=== PATIENT | female | born 1950 | race Caucasian/White ===

== ENCOUNTER 2019-11-10 04:12 | Emergency (ER) | payer MEDICARE, OTHER ==
[~2019-11-10] VITALS: Ht 167.6 cm; Wt 109.5 kg
[~2019-11-10 04:12] MED LIST: BACTRIM DS TAB1 EACH PO; BUPROPION XL150 MG PO; CIPROFLOXACIN500 M1 PO; FLEXERIL PO; NORCO 5-325 TA1 EACH PO; SYNTHROID100 MCG; SYNTHROID125 MCG PO
[2019-11-10] MEDS ORDERED: LEVO-T100 MCG PO (04:22)
[2019-11-10 04:32] LABS: ABSOLUTE EOSINOPHILS 0.2 thou/uL (0.0-0.7); ABSOLUTE LYMPHOCYTES 2.7 thou/uL (0.8-5.3); ABSOLUTE MONOCYTES 0.8 thou/uL (0.0-1.2); ABSOLUTE NEUTROPHILS 3.3 thou/uL (1.6-8.1); BASOPHILS 0.5 %; EOSINOPHILS 2.6 %; HEMATOCRIT 43.9 % (37.0-47.0); HEMOGLOBIN 15.3 gm/dL (12.0-15.0); LYMPHOCYTES 38.6 %; MCH 31.9 pg (26.0-34.0); MCHC 34.8 g/dL (28.0-37.0); MCV 91.4 fL (80.0-100.0); MONOCYTES 11.1 %; MPV 10.2 fl. (7.2-11.1); NUCLEATED RBCS 0 /100WBC; PLATELET COUNT* 215 thou/uL (150-400); POLYS 47.2 %; RDW-CV 13.9 % (10.5-14.5)
[2019-11-10 04:46] LABS: PROTIME 10.3 Seconds (9.20-11.50)
[2019-11-10 05:28] LABS: URINE BILIRUBIN NEGATIVE (Negative); URINE BLOOD NEGATIVE (Negative); URINE CLARITY CLEAR; URINE COLOR YELLOW; URINE GLUCOSE-RANDOM NEGATIVE (Negative); URINE KETONES NEGATIVE (Negative); URINE LEUKOCYTES-REFLEX TRACE (Negative); URINE NITRITE-REFLEX NEGATIVE (Negative); URINE PROTEIN NEGATIVE (Negative); URINE SPECIFIC GRAVITY <= 1.005 (1.005-1.030); URINE UROBILINOGEN 0.2 E.U./dl (0.2-1.0)
[2019-11-10 05:29] LABS: CALCIUM 8.8 mg/dL (8.5-10.1); CREATININE 0.8 mg/dL (0.6-1.3); POTASSIUM 3.3 mmol/L (3.5-5.1)
[2019-11-10 05:40] LABS: BACTERIA-REFLEX 1-9 Few /HPF (None Seen); CASTS None Seen /LPF (None Seen); CRYSTALS None Seen /LPF (None Seen); MUCUS 0-3 Light strn/LPF (None Seen); SQUAMOUS 0-3 Few /LPF (0-3); URINE RBC 0-2 Rare /HPF (0-2); URINE WBC-REFLEX 0-5 Rare /HPF (0-5)
[2019-11-10 05:43] LABS: ALBUMIN 4.1 g/dL (3.4-5.0); TOTAL BILIRUBIN 0.4 mg/dL (<0.1-1.0); TOTAL PROTEIN 7.4 g/dL (6.4-8.2)
[2019-11-10 06:06] VITALS: BP 160/72
--- NOTE | 2019-11-10 11:11 | EKG ---
[place] [address] ELECTROCARDIOGRAM REPORT Name: JAKE SERRA Room: [facility]#: [id number] Admission: 11/10/19 Attend Phys: Discharge: 11/10/19 Date of : 48 Report #: [id number] THIS REPORT FOR: //name// [facility] ED Test Date: 2019-11-10 Test Time: 04:17:38 Pat Name: JAKE SERRA Department: Room: Gender: F Predictive Maintenance Specialist: : [id number] Requested By: Negar Castellanos Order Number: [id number] MD: Jamil Chawla Measurements Intervals [place] Rate: 94 P: 51 [place]: 162 QRS: 29 QRSD: 109 T: 40 QT: 386 QTc: 483 Interpretive Statements Sinus rhythm Nonspecific repol abnormality, lateral leads Baseline wander in lead(s) I,II,III,aVR,aVL,aVF,V3,V6 Compared to ECG 03/18/2012 10:21:54 no change Electronically Signed On 11-10-2019 11:10:52 [employer] by Jamil Chawla [email or web address] <ELECTRONICALLY SIGNED> By: Jamil Chawla MD, LOCATED WITHIN [facility] 11/10/19 1110 0417 [id number] Jamil Chawla MD, LOCATED WITHIN [facility] /EPI
== END 2019-11-10 06:06 | disposition home or self-care (01) ==
LOC: M.ERS 04:12
PROVIDERS: Emergency Medicine
DX: E87.6 Hypokalemia (principal); R00.2 Palpitations; Z88.0 Allergy status to penicillin; M79.7 Fibromyalgia; E03.9 Hypothyroidism, unspecified; Z88.2 Allergy status to sulfonamides; Z88.5 Allergy status to narcotic agent; Z90.49 Acquired absence of other specified parts of digestive tract; Z90.710 Acquired absence of both cervix and uterus